=== PATIENT | female | born 2000 | race Caucasian/White ===

== ENCOUNTER 2024-05-29 16:20 | Emergency (ER) | payer SELFPAY ==
[~2024-05-29] VITALS: Ht 157.5 cm; Wt 55.0 kg
[2024-05-29 16:33] VITALS: O2SAT 99
[2024-05-29 17:02] LABS: BASOPHILS % 0.5 % (0.0-2.0); CHLORIDE 106 mEq/L (98-107); EOSINOPHILS % 0.2 % (0.0-5.0); HEMATOCRIT. 43.3 % (36.0-48.0); HEMOGLOBIN. 14.3 g/dL (12.0-16.0); MEAN CORPUSCULAR HEMOGLOBIN 30.7 pg (28.0-32.0); MEAN CORPUSCULAR HGB CONC 33.1 g/dL (31.0-37.0); MEAN CORPUSCULAR VOLUME 92.6 fL (81.0-99.0); MEAN PLATELET VOLUME 8.6 fl (7.4-10.4); MONOCYTES % 2.8 % (2.0-8.0); NEUTROPHILS % 86.5 % (40.0-76.0); PLATELET 221 x1000/uL (130-400); POTASSIUM 3.7 mEq/L (3.5-5.1); RED BLOOD CELL COUNT 4.67 mill/uL (4.2-5.4); SODIUM 137 mEq/L (136-145); WHITE BLOOD COUNT 9.4 x1000/uL (4.5-11.0)
[2024-05-29 17:03] LABS: CARBON DIOXIDE 26 mEq/L (21-32)
[2024-05-29 17:04] LABS: CALCIUM 9.7 mg/dL (8.7-10.4)
[2024-05-29 17:08] LABS: CREATININE 0.5 mg/dL (0.6-1.0); GLUCOSE 116 mg/dL (70-105)
[2024-05-29 17:09] LABS: UREA NITROGEN BLOOD 8 mg/dL (9-23)
[2024-05-29 17:10] LABS: ALANINE AMINOTRANSFERASE 17 IU/L (10-49); ALBUMIN 4.9 g/dL (3.2-4.8); ASPARTATE AMINOTRANSFERASE 18 IU/L (<34)
[2024-05-29 17:11] LABS: BILIRUBIN DIRECT 0.3 mg/dL (<=3.0); PROTEIN TOTAL 8.3 g/dL (6.0-8.3)
[2024-05-29 19:28] LABS: CLARITY URINE CLEAR (CLEAR); COLOR URINE YELLOW (YELLOW); GLUCOSE URINE NEGATIVE (NEGATIVE); KETONES URINE NEGATIVE (NEGATIVE); LEUKOCYTE ESTERASE URINE NEGATIVE (NEGATIVE); NITRITE URINE NEGATIVE (NEGATIVE); OCCULT BLOOD URINE NEGATIVE (NEGATIVE); PROTEIN URINE NEGATIVE (NEGATIVE); SPECIFIC GRAVITY URINE 1.011 (1.005-1.030); UROBILINOGEN URINE 0.2 E.U./dL (0.2-1.0)
[2024-05-29] MEDS: KETOROLAC 30MG/ML VIAL IM ONE (22:15)
[2024-05-29] MEDS: ACETAMINOPHEN 325MG TABLET PO ONE (22:15)
[2024-05-29] MEDS: ONDANSETRON 4MG ODT PO ONE (22:15)
[2024-05-30 00:01] VITALS: BP 118/96; PULSE 65; RESP 18; TEMP 98
== END 2024-05-30 00:01 | disposition home or self-care (01) ==
LOC: ER 16:20
DX: R51.9 Headache, unspecified (principal); K29.00 Acute gastritis without bleeding; F41.9 Anxiety disorder, unspecified; I10 Essential (primary) hypertension; Z98.890 Other specified postprocedural states; Z20.822 Contact with and (suspected) exposure to COVID-19
CPT/HCPCS: 99285; 70450; 71045; 87426; 80076; 80048; 81003; 81025; 83690; 85025; 87804 ×2; 36415; 96372; Q0162; J1885